=== PATIENT | male | born 2000 | race Caucasian/White ===

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

== ENCOUNTER 2019-05-20 15:40 | Emergency (ER) | payer BC ==
[~2019-05-20] VITALS: Ht 177.8 cm; Wt 81.8 kg
[~2019-05-20 15:40] MED LIST changes: +MELAT3MGTAB
[2019-05-20 15:54] VITALS: BP 121/81; PULSE 84; TEMP 98.9
== END 2019-05-20 17:14 | disposition home or self-care (01) ==
LOC: COL.ER 15:40
DX: S53.401A Unspecified sprain of right elbow, initial encounter (principal); F17.210 Nicotine dependence, cigarettes, uncomplicated; F12.90 Cannabis use, unspecified, uncomplicated; Z90.49 Acquired absence of other specified parts of digestive tract; W01.0XXA Fall on same level from slipping, tripping and stumbling without subsequent striking against object, initial encounter; Y92.009 Unspecified place in unspecified non-institutional (private) residence as the place of occurrence of the external cause
CPT/HCPCS: J1885

== ENCOUNTER 2019-06-07 11:05 | Emergency (ER) | payer BC ==
[~2019-06-07] VITALS: Ht 177.8 cm; Wt 82.2 kg
[2019-06-07 11:19] VITALS: TEMP 98.4
[2019-06-07 12:02] LABS: BASO % 0.5 % (0.0-2.0); EOS % 0.5 % (0-4.0); GRAN # 5.6 (1.4-6.5); GRAN % 74.3 % (42.2-75.2); HEMOGLOBIN 15.8 g/dl (12.5-16.1); LYMPH # 1.3 (1.2-3.4); LYMPH % 17.4 % (20.0-51.0); MEAN CELL VOLUME 90 fl (80.0-95.0); MEAN CORPUSCULAR HEMOGLOBIN 31 pg (26.0-32.0); MEAN CORPUSCULAR HGB CONC 34 g/dl (33.0-37.0); MEAN PLATELET VOLUME 9.2 fl (7.4-10.4); MONO # 0.5 (0.1-0.6); MONO % 6.6 % (1.7-9.3); PLATELET COUNT 263 K/mm3 (130-400); RED BLOOD COUNT 5.14 M/mm3 (4.20-5.60); REDCELL DISTRIBUTION WIDTH-CV 12.3 % (11.5-14.5)
[2019-06-07 12:29] LABS: COLLECTION METHOD CLEAN CATCH
[2019-06-07 12:35] LABS: MUCOUS Present /lpf; PH 8 (5-8); SQUAMOUS EPITHELIAL None Seen /hpf; URINE APPEARANCE Clear; URINE BACTERIA None Seen /hpf; URINE BILIRUBIN Negative (NEGATIVE); URINE BLOOD Negative (NEGATIVE); URINE COLOR Yellow; URINE GLUCOSE Negative (NEGATIVE); URINE KETONE Negative (NEGATIVE); URINE LEUKOCYTE ESTERASE Negative (NEGATIVE); URINE NITRATE Negative (NEGATIVE); URINE PROTEIN(semi-quant) Negative (NEGATIVE); URINE RBC 0-2 /hpf; URINE UROBILINOGEN Negative (NEGATIVE)
[2019-06-07 13:00] LABS: ALANINE AMINOTRANSFERASE 19 U/L (21-72); ALBUMIN 4.6 gm/dL (3.5-5.0); ALKALINE PHOSPHATASE 64 U/L (50-136); ANION GAP 12 mmol/L (7-16); AST,SGOT 33 U/L (15-37); BILIRUBIN,TOTAL 0.4 mg/dL (0.0-1.0); BLOOD UREA NITROGEN 13 mg/dL (9-20); CALCIUM 9.8 mg/dL (8.4-10.2); CARBON DIOXIDE 23 mmol/L (22-30); CHLORIDE 106 mmol/L (98-107); CREATININE, serum 0.74 (0.66-1.25); GLUCOSE 104 mg/dL (74-106); POTASSIUM 4.5 mmol/L (3.4-5.0); SODIUM 141 mmol/L (137-145); TOTAL PROTEIN 8.3 gm/dL (6.4-8.2)
[2019-06-07 13:01] LABS: C-REACTIVE PROTEIN < 0.5 mg/dL (0.0-0.9)
[2019-06-07 13:12] LABS: PROLACTIN 8.8 ng/mL (3.7-17.9)
[2019-06-07] MEDS ORDERED: ZOFRAN ODT4 MG PO (14:22)
[2019-06-07 14:24] VITALS: BP 119/69; PULSE 59
== END 2019-06-07 14:33 | disposition home or self-care (01) ==
LOC: COL.ER 11:05
PROVIDERS: Physician Assistant
DX: R10.30 Lower abdominal pain, unspecified (principal); R11.10 Vomiting, unspecified; F17.210 Nicotine dependence, cigarettes, uncomplicated; F12.90 Cannabis use, unspecified, uncomplicated
CPT/HCPCS: J1885; J2405; J7030; Q9967

== ENCOUNTER 2019-08-04 19:56 | Emergency (ER) | payer BC ==
[~2019-08-04] VITALS: Ht 180.3 cm; Wt 83.2 kg
[~2019-08-04 19:56] MED LIST changes: +ZOFRAN ODT4 MG PO
[2019-08-04 20:02] VITALS: TEMP 99
[2019-08-04 20:38] LABS: ALANINE AMINOTRANSFERASE 37 U/L (21-72); ALKALINE PHOSPHATASE 62 U/L (50-136); ANION GAP 9 mmol/L (7-16); AST,SGOT 35 U/L (15-37); BILIRUBIN,TOTAL 0.6 mg/dL (0.0-1.0); BLOOD UREA NITROGEN 11 mg/dL (9-20); CALCIUM 9.9 mg/dL (8.4-10.2); CARBON DIOXIDE 25 mmol/L (22-30); CHLORIDE 104 mmol/L (98-107); CREATININE, serum 0.87 (0.66-1.25); GLUCOSE 96 mg/dL (74-106); LIPASE 56 U/L (23-300); POTASSIUM 3.8 mmol/L (3.4-5.0); SODIUM 139 mmol/L (137-145); TOTAL PROTEIN 8.6 gm/dL (6.4-8.2)
[2019-08-04 20:39] LABS: C-REACTIVE PROTEIN < 0.5 mg/dL (0.0-0.9)
[2019-08-04] MEDS ORDERED: ZOFRAN ODT4 MG PO (21:18)
[2019-08-04 21:40] VITALS: BP 130/94; PULSE 84
[2019-08-04 22:32] LABS: HEMOGLOBIN 15.6 g/dl (12.5-16.1); MEAN CORPUSCULAR HEMOGLOBIN 29 pg (26.0-32.0); RED BLOOD COUNT 5.33 M/mm3 (4.20-5.60)
[2019-08-04 22:33] LABS: EOS % 1.5 % (0-4.0); GRAN % 67.7 % (42.2-75.2); HEMATOCRIT 47.4 % (36.0-47.0); LYMPH % 21.9 % (20.0-51.0); MEAN CELL VOLUME 89 fl (80.0-95.0); MEAN CORPUSCULAR HGB CONC 33 g/dl (33.0-37.0); MEAN PLATELET VOLUME 9.6 fl (7.4-10.4); MONO % 8.4 % (1.7-9.3); PLATELET COUNT 289 K/mm3 (130-400); REDCELL DISTRIBUTION WIDTH-CV 12.9 % (11.5-14.5)
[2019-08-04 22:34] LABS: BASO % 0.4 % (0.0-2.0); EOS # 0.1 (0.0-0.7); GRAN # 5.3 (1.4-6.5); LYMPH # 1.7 (1.2-3.4); MONO # 0.7 (0.1-0.6)
== END 2019-08-04 21:42 | disposition home or self-care (01) ==
LOC: COL.ER 19:56
PROVIDERS: Physician Assistant
DX: R10.12 Left upper quadrant pain (principal); F17.210 Nicotine dependence, cigarettes, uncomplicated; F12.90 Cannabis use, unspecified, uncomplicated; Z98.890 Other specified postprocedural states
CPT/HCPCS: J1885; J2405; J7030; Q9967

== ENCOUNTER 2019-11-13 18:01 | Emergency (ER) | payer BC ==
[~2019-11-13] VITALS: Ht 180.3 cm; Wt 92.7 kg
[2019-11-13 18:21] VITALS: BP 162/84; TEMP 97.5
[2019-11-13 19:19] LABS: BASO % 0.3 % (0.0-2.0); EOS # 0.1 (0.0-0.7); EOS % 0.4 % (0-4.0); GRAN # 8.7 (1.4-6.5); GRAN % 73.1 % (42.2-75.2); HEMATOCRIT 45.6 % (36.0-47.0); HEMOGLOBIN 16.1 g/dl (12.5-16.1); LYMPH # 2.5 (1.2-3.4); MEAN CELL VOLUME 87 fl (80.0-95.0); MEAN CORPUSCULAR HEMOGLOBIN 31 pg (26.0-32.0); MEAN CORPUSCULAR HGB CONC 35 g/dl (33.0-37.0); MEAN PLATELET VOLUME 9.2 fl (7.4-10.4); MONO # 0.6 (0.1-0.6); MONO % 4.9 % (1.7-9.3); PLATELET COUNT 308 K/mm3 (130-400); RED BLOOD COUNT 5.27 M/mm3 (4.20-5.60); REDCELL DISTRIBUTION WIDTH-CV 12.2 % (11.5-14.5)
[2019-11-13 19:35] LABS: ALANINE AMINOTRANSFERASE 43 U/L (21-72); ALBUMIN 4.5 gm/dL (3.5-5.0); ALKALINE PHOSPHATASE 70 U/L (50-136); ANION GAP 13 mmol/L (7-16); AST,SGOT 36 U/L (15-37); BILIRUBIN,TOTAL 0.6 mg/dL (0.0-1.0); BLOOD UREA NITROGEN 12 mg/dL (9-20); CALCIUM 9.7 mg/dL (8.4-10.2); CARBON DIOXIDE 20 mmol/L (22-30); CHLORIDE 107 mmol/L (98-107); CREATININE, serum 0.99 (0.66-1.25); GLUCOSE 122 mg/dL (74-106); LIPASE 74 U/L (23-300); POTASSIUM 3.2 mmol/L (3.4-5.0); SODIUM 140 mmol/L (137-145); TOTAL PROTEIN 7.5 gm/dL (6.4-8.2)
[2019-11-13 19:44] LABS: C-REACTIVE PROTEIN < 0.5 mg/dL (0.0-0.9)
[2019-11-13 20:04] LABS: COLLECTION METHOD CLEAN CATCH
[2019-11-13 20:14] LABS: MUCOUS Present /lpf; PH 6 (5-8); SQUAMOUS EPITHELIAL None Seen /hpf; URINE APPEARANCE Clear; URINE BACTERIA Rare /hpf; URINE BILIRUBIN Negative (NEGATIVE); URINE BLOOD 3+ (NEGATIVE); URINE COLOR Yellow; URINE GLUCOSE Negative (NEGATIVE); URINE KETONE Negative (NEGATIVE); URINE LEUKOCYTE ESTERASE Negative (NEGATIVE); URINE NITRATE Negative (NEGATIVE); URINE PROTEIN(semi-quant) Negative (NEGATIVE); URINE RBC >50 /hpf; URINE UROBILINOGEN Negative (NEGATIVE)
[2019-11-13] MEDS ORDERED: ZOFRAN 4MG T4 MG/TAB PO (20:33)
[2019-11-13] MEDS ORDERED: NORCO 325 MG-51 TAB PO (20:33)
[2019-11-13 20:50] VITALS: PULSE 98
== END 2019-11-13 20:50 | disposition home or self-care (01) ==
LOC: COL.ER 18:01
PROVIDERS: Emergency Medicine
DX: N20.1 Calculus of ureter (principal); N23 Unspecified renal colic; G40.909 Epilepsy, unspecified, not intractable, without status epilepticus; Z87.442 Personal history of urinary calculi
CPT/HCPCS: J1885; J2405; J3010; J7030; Q9967

== ENCOUNTER 2020-01-18 16:19 | Emergency (ER) | payer BC ==
[~2020-01-18] VITALS: Ht 180.3 cm; Wt 90.9 kg
[~2020-01-18 16:19] MED LIST changes: +NORCO 325 MG-51 TAB PO; +ZOFRAN 4MG T4 MG/TAB PO
[2020-01-18 16:56] VITALS: BP 129/75; TEMP 98.1
[2020-01-18 19:26] VITALS: PULSE 66
== END 2020-01-18 19:26 | disposition home or self-care (01) ==
LOC: COL.ER 16:19
DX: B34.9 Viral infection, unspecified (principal); Z87.891 Personal history of nicotine dependence; Z90.89 Acquired absence of other organs

== ENCOUNTER 2022-06-18 12:50 | Emergency (ER) | payer OTHER, BC ==
[~2022-06-18] VITALS: Ht 177.8 cm; Wt 94.5 kg
[2022-06-18 12:57] VITALS: BP 144/94
[2022-06-18 13:36] VITALS: TEMP 98.3
[2022-06-18] MEDS ORDERED: SEPTRA DS 8001 TAB PO (14:06)
[2022-06-18] MEDS ORDERED: NORCO 325 MG-51 TAB PO (14:06)
[2022-06-18 14:34] VITALS: PULSE 96
[2022-06-23] MEDS ORDERED: FLAGYL500 MG PO (06:55)
== END 2022-06-18 14:35 | disposition home or self-care (01) ==
LOC: COL.ER 12:50
DX: L02.31 Cutaneous abscess of buttock (principal); Z88.0 Allergy status to penicillin; Z28.310 Unvaccinated for COVID-19